=== PATIENT | male | born 1985 | race Caucasian/White ===

== ENCOUNTER 2018-09-12 17:11 | Inpatient (IN) | payer OTHER ==
[2018-09-12 17:46] VITALS: BMI 19.1
--- NOTE | 2018-09-12 20:40 | HP ---
CIWA Score - Admission Criteria [facility] Guidelines: Admission for Medically Managed Detox: Requires at least one of the followin. CIWA greater than 12 2. Seizures within the past 24 hours 3. Delirium tremens within the past 24 hours 4. Hallucinations within the past 24 hours 5. Acute intervention needed for co occurring medical disorder 6. Acute intervention needed for co occurring psychiatric disorder 7. Severe withdrawal that cannot be handled at a lower level of care (continued vomiting, continued diarrhea, abnormal vital signs) requiring intravenous medication and/or fluids 8. Admission ROS S - HPI Chief Complaint: SEEKING REHAB SERVICES FOR CRYSTAL METH AND MARIJUANA. Allergies/Adverse Reactions: Allergies Allergy/AdvReac Type Severity Reaction Status Date / Time No Known Allergies Allergy Verified 09/12/18 18:10 History of Present Illness: 33 Y.O. MALE WITH HX/O CRYSTAL METH AND CANNABIS DEPENDENCE HERE FOR REHAB SERVICES. CLIENT IS REFERRED BY [facility] AFTER SEEKING ER SERVICES FOR C/O PANIC AND SI AFTER GETTING HIGH. CLIENT REPORTS THIS IS HIS FIRST INPATIENT TXMENT. UTOX IS POSITIVE FOR BENZO , RECEIVED IN ER FOR THE ANXIETY. REPORTS LONGEST CLEAN TIME 6 MONTHS. DENIES NAY SIGNIFICANT CLEAN TIME IN THE PAST YEAR. REPORTS HX/O SI BUT PRESENTLY DENIES. DENIES AVH, SEIZURES, DRUG OVERDOSE. LIVES ALONE, RECENTLY UNEMPLOYED, ON PAROLE. PMHX- HIV -STRIBILD- NON COMPLIANT WITH MEDS STATES "I HAVE NOT TAKEN IN A LONG TIME" PSYCH- BORDERLINE PERSONALITY D/O, ANXIETY, DEPRESSION Exam Limitations: No Limitations - Ebola screening Have you traveled outside of the country in the last 21 days: No Have you had contact with anyone from an Ebola affected area: No Have you been sick,other than usual withdrawal symptoms: No Do you have a fever: No - Review of Systems Constitutional: No Symptoms Reported EENT: reports: Mouth Pain (C/O SORE IN MOUTH R/T CRYSTAL METH ABUSE) Respiratory: reports: No Symptoms reported Cardiac: reports: No Symptoms Reported GI: reports: Poor Fluid Intake : reports: No Symptoms Reported Musculoskeletal: reports: No Symptoms Reported Integumentary: reports: Erythema (SORE/ABCESS IN MOUTH) Neuro: reports: No Symptoms reported Endocrine: reports: No Symptoms Reported Hematology: reports: No Symptoms Reported Psychiatric: reports: Anxious, Depressed Other Systems: Reviewed and Negative Patient History - Patient Medical History Hx Anemia: No Hx Asthma: No Hx Chronic Obstructive Pulmonary Disease (COPD): No Hx Cancer: No Hx Cardiac Disorders: No Hx Congestive Heart Failure: No Hx Hypertension: No Hx Hypercholesterolemia: No HX Cerebrovascular Accident: No Hx Seizures: No Hx Dementia: No Hx Diabetes: No Hx Gastrointestinal Disorders: Yes (IBS) Hx Liver Disease: No Hx Genitourinary Disorders: No Hx Sexually Transmitted Disorders: No Hx Renal Disease (ESRD): No Hx Thyroid Disease: No Hx Human Immunodeficiency Virus (HIV): Yes (DX 02/06/2008) Hx Hepatitis C: No Hx Depression: Yes Hx Suicide Attempt: No Hx Bipolar Disorder: No Hx Schizophrenia: No - Patient Surgical History Past Surgical History: No - PPD History Previous Implant?: Yes Documented Results: Negative w/o proof Implanted On Prior [facility] Admission?: No PPD to be Administered?: Yes - Smoking Cessation Smoking history: Former smoker Have you smoked in the past 12 months: No Cigars Per Day: 0 Hx Chewing Tobacco Use: No Initiated information on smoking cessation: No - Substance & Tx. History Hx Alcohol Use: No Hx Substance Use: Yes Substance Use Type: Marijuana, Tranquilizers (CRYSTAL METH) Hx Substance Use Treatment: No - Substances Abused THC Route: Smoking Frequency: Daily Amount used: 50 BLUNTS Age of first use: 19 Date of Last Use: 09/10/18 CRYSTAL METH Route: Injection Frequency: 3-6 times per week Amount used: 120 DOLLARS Age of first use: 31 Date of Last Use: 09/10/18 Family Disease History - Family Disease History Family History: Denies Admission Physical Exam BHS - Vital Signs Vital Signs: Vital Signs - 24 hr 09/12/18 17:44 Temperature 96.7 F L Pulse Rate 85 Respiratory 18 Rate Blood Pressure 100/60 - Physical General Appearance: Yes: Appropriately Dressed, Anxious HEENTM: Yes: EOMI, Normocephalic, Normal Voice, PAMELA, Pharynx Normal, Orbits ( RIGHT DROOPY EYE), Other (SMALL LOCALIZED REDNESS WITH TENDERNESS ON PALPATION TO LUQ OF ORAL MUCOSA) Respiratory: Yes: Chest Non-Tender, Lungs Clear, Normal Breath Sounds, No Respiratory Distress, No Accessory Muscle Use Neck: Yes: No masses,lesions,Nodules, Supple, Trachea in good position Breast: Yes: Breast Exam Deferred Cardiology: Yes: Regular Rhythm, Regular Rate, S1, S2 Abdominal: Yes: Normal Bowel Sounds, Non Tender, Soft Genitourinary: Yes: Within Normal Limits Back: Yes: Normal Inspection Musculoskeletal: Yes: full range of Motion, Gait Steady Extremities: Yes: Normal Capillary Refill, Normal Range of Motion, Non-Tender Neurological: Yes: Fully Oriented, Alert, Motor Strength 5/5 Integumentary: Yes: Dry, Warm, Other (INJECTION HALE TO ARMS) Lymphatic: Yes: Within Normal Limits - Diagnostic (1) Methamphetamine dependence Current Visit: Yes Status: Acute (2) Cannabis dependence Current Visit: Yes Status: Acute (3) HIV (human immunodeficiency virus infection) Current Visit: Yes Status: Chronic (4) Non compliance w medication regimen Current Visit: Yes Status: Chronic (5) IV drug user Current Visit: Yes Status: Chronic (6) At risk for dehydration due to poor fluid intake Current Visit: Yes Status: Acute (7) Substance induced mood disorder Current Visit: Yes Status: Suspected (8) Homeless Current Visit: Yes Status: Suspected Cleared for Admission [facility] - Detox or Rehab Detox Regimen/Protocol: Not Applicable Claeared for Rehab Admission: Yes [facility] Breath Alcohol Content Breath Alcohol Content: 0 Urine Drug Screen - Results Drug Screen Negative: No Urine Drug Screen Results: THC-Marijuana, AMP-Amphetamines, MET-Methamphetamine , BAR-Barbiturates, BZO-Benzodiazepines Inpatient Rehab Admission - Initial Determination Are CD services needed?: Yes Free of communicable disease: No Not in need of hospitalization: Yes - Rehab Admission Criteria Previous failed treatment: No Poor recovery environment: Yes Comorbidities: Yes Lacks judgement: No Patient is meeting Inpatient Rehab admission criteria:: Yes
[2018-09-12] MEDS ORDERED: MENTHOL/PHENOL 1 EACH UD MM PRN (20:59)
[2018-09-12] MEDS ORDERED: LOPERAMIDE HCL 2 MG CAPSULE PO PRN (20:59)
[2018-09-12] MEDS ORDERED: P-EPHED 60MG/TRIPROLIDI 2.5MG TABLET PO PRN (20:59)
[2018-09-12] MEDS ORDERED: MAGNESIUM HYDROX 2400MG/30ML ORAL SUSPENSION 30 ML CUP PO PRN (20:59)
[2018-09-12] MEDS ORDERED: guaiFENesin/D-METHORPHAN HB 10 ML UNIT-DOSE CUPS PO PRN (20:59)
[2018-09-12] MEDS ORDERED: ACETAMINOPHEN 325 MG TABLET (FP) PO PRN (20:59)
[2018-09-12] MEDS ORDERED: MAGNESIUM CITRATE 300 ML BOTTLE PO PRN (20:59)
[2018-09-12] MEDS ORDERED: IBUPROFEN 400 MG TABLET (FP) PO PRN (20:59)
[2018-09-12] MEDS ORDERED: TUBERCULIN PPD 5 TU/0.1ML VIAL ID ONE (23:11)
[2018-09-12] MEDS: THIAMINE HCL 100 MG TABLET (FP) PO SCH (23:32)
[2018-09-12] MEDS: MELATONIN 5 MG TABLETS PO PRN (23:33)
[2018-09-12] MEDS: hydrOXYzine PAMOATE 50 MG CAPSULE (FP) PO PRN (23:33)
--- NOTE | 2018-09-13 06:54 | HP ---
Psychiatrist Admission - Data Date of interview: 09/13/18 Admission source: [facility] Identifying data: This is the first [facility] admission for this 33 years single old male, unemployed on public assistance, domiciled Medical History: Significant for HIV since 2007, history of irritable bowel syndrome Psychiatric History: Reports being diagnosed with Borderline Personality Disorder and depression at age 15 and Anxiety in 2014. Reports multiple previous hospitalizations at [facility] [address] and recently 2.[address] [facility]. Reports that he is not currently receiving psychiatric treament and he is not taking medication. Claims that in the past he has been on Celexa, Paxil, Zyprexa, Vistaril etc. Denies previous suicidal attempt. At present, reports feeing anxious and sleeping poorly Physical/Sexual Abuse/Trauma History: Denies history of emotional, physical or sexual abuse as well as DV relationship Additional Comment: Reports history of one previous arrest on charges of carrie in the 1st degree. He is currenly on parole till December 2019 Vital Signs: Vital Signs - 24 hr 09/12/18 09/13/18 09/13/18 17:44 00:30 03:30 Temperature 96.7 F L Pulse Rate 85 Respiratory 18 16 16 Rate Blood Pressure 100/60 Allergies/Adverse Reactions: Allergies Allergy/AdvReac Type Severity Reaction Status Date / Time No Known Allergies Allergy Verified 09/12/18 18:10 Date of last physical exam: 09/12/18 Concur with the findings of this exam: Yes - Substance Abuse/Tx History Hx Substance Use: Yes (Started crystal meth at 31, consumes $120 3-6 x weekly. Last used on ) Substance Use Type: Marijuana (Started smoking marijuana at age 19, consumes 50 blunts daily. Last smoked on 09/10/19) Hx Substance Use Treatment: No Mental Status Exam - Mental Status Exam Alert and Oriented to: Time, Place, Person Cognitive Function: Fair Patient Appearance: Well Groomed Mood: Anxious Affect: Appropriate Patient Behavior: Cooperative Speech Pattern: Clear Voice Loudness: Normal Thought Process: Intact, Goal Oriented Hallucinations: Denies Suicidal Ideation: Denies Homicidal Ideation: Denies Insight/Judgement: Fair Sleep: Poorly Appetite: Fair Muscle strength/Tone: Normal Gait/Station: Normal Psychiatric Findings - Problem List ([place] 1, 2,3) (1) Cannabis dependence Current Visit: Yes Status: Acute (2) Methamphetamine dependence Current Visit: Yes Status: Acute (3) Mood disorder Current Visit: Yes Status: Chronic (4) Substance-induced anxiety disorder Current Visit: Yes Status: Acute (5) Substance-induced sleep disorder Current Visit: Yes Status: Acute (6) HIV (human immunodeficiency virus infection) Current Visit: Yes Status: Chronic - Initial Treatment Plan Initial Treatment Plan: Monitor progress
[2018-09-13] MEDS: PRENATAL VITAMINS W/ FOLIC ACID TABLET (FP) PO SCH (10:11)
[2018-09-13] MEDS: LIDOCAINE VISCOUS 2% ORAL/TOP 20 ML UNIT-DOSE CUP MM PRN (12:53)
[2018-09-13] MEDS: hydrOXYzine PAMOATE 50 MG CAPSULE (FP) PO PRN (14:13)
--- NOTE | 2018-09-13 16:24 | EKG ---
Test Reason : Blood Pressure : / mmHG Vent. Rate : 078 BPM Atrial Rate : 078 BPM P-R Int : 164 ms QRS Dur : 086 ms QT Int : 366 ms P-R-T Axes : 043 085 075 degrees QTc Int : 417 ms NORMAL SINUS RHYTHM ST ELEVATION, CONSIDER EARLY REPOLARIZATION, PERICARDITIS, OR INJURY ABNORMAL ECG NO PREVIOUS ECGS AVAILABLE Confirmed by PARVEEN BELLA MD ([id number]) on 09/13/2018 4:24:13 PM Referred By: Confirmed By:PARVEEN BELLA MD
[2018-09-13 16:44] LABS: URINE APPEARANCE TURBID; URINE BILIRUBIN NEGATIVE (<2.0 mg/dL); URINE COLOR YELLOW; URINE GLUCOSE (UA) NEGATIVE (NEGATIVE); URINE KETONE NEGATIVE (NEGATIVE); URINE LEUK ESTERASE NEGATIVE (NEGATIVE); URINE NITRITE NEGATIVE (NEGATIVE); URINE PROTEIN 1+ (NEGATIVE); URINE UROBILINOGEN NEGATIVE mg/dL (0.2-1.0)
[2018-09-13 16:53] LABS: URINE MUCUS MANY
[2018-09-13] MEDS: THIAMINE HCL 100 MG TABLET (FP) PO SCH (21:59)
[2018-09-14] MEDS: PRENATAL VITAMINS W/ FOLIC ACID TABLET (FP) PO SCH (09:38)
[2018-09-14] MEDS: hydrOXYzine PAMOATE 50 MG CAPSULE (FP) PO PRN (09:38)
[2018-09-14] MEDS: LIDOCAINE VISCOUS 2% ORAL/TOP 20 ML UNIT-DOSE CUP MM PRN (09:39)
[2018-09-14 11:05] LABS: BASO % 1.3 % (0-2.0); EOS % 5.8 % (0-4.5); HEMATOCRIT 44.7 % (35.4-49); HEMOGLOBIN 14.7 GM/dL (11.7-16.9); MCH 31.4 pg (25.7-33.7); MEAN CELL VOLUME 95.2 fl (80-96); MEAN PLT VOLUME 7.6 fl (7.5-11.1); MONO % 11.3 % (3.8-10.2); NEUT % 46.6 % (42.8-82.8); PLATELET COUNT 317 K/MM3 (134-434); RDW 13.2 % (11.9-15.9); WHITE BLOOD COUNT 4.9 K/mm3 (4.0-10.0)
[2018-09-14 11:13] LABS: ALBUMIN 3.8 g/dl (3.4-5.0); ALK PHOS 65 U/L (45-117); ANION GAP 6 MMOL/L (8-16); BILIRUBIN,TOTAL 0.7 mg/dL (0.2-1); BLOOD UREA NITROGEN 11 mg/dL (7-18); CALCIUM 8.5 mg/dL (8.5-10.1); CHLORIDE 102 mmol/L (98-107); CO2 29 mmol/L (21-32); CREATININE 0.8 mg/dL (0.55-1.3); GLUCOSE,RANDOM 82 mg/dL (74-106); POTASSIUM 4.5 mmol/L (3.5-5.1); SGOT/AST 16 U/L (15-37); SGPT/ALT 31 U/L (13-61); SODIUM 136 mmol/L (136-145); TOT PROT 7.7 g/dl (6.4-8.2)
[2018-09-14] MEDS: MAG HYDROX/AL HYDROX/SIMETH 30 ML UNIT-DOSE CUP PO PRN (19:41)
[2018-09-14] MEDS: THIAMINE HCL 100 MG TABLET (FP) PO SCH (22:01)
[2018-09-15] MEDS: PRENATAL VITAMINS W/ FOLIC ACID TABLET (FP) PO SCH (09:59)
[2018-09-15] MEDS: hydrOXYzine PAMOATE 50 MG CAPSULE (FP) PO PRN ×2 (10:00→17:36)
[2018-09-15] MEDS: THIAMINE HCL 100 MG TABLET (FP) PO SCH (21:50)
[2018-09-16] MEDS: hydrOXYzine PAMOATE 50 MG CAPSULE (FP) PO PRN ×2 (08:50→21:07)
[2018-09-16] MEDS: PRENATAL VITAMINS W/ FOLIC ACID TABLET (FP) PO SCH (10:40)
[2018-09-16] MEDS: MELATONIN 5 MG TABLETS PO PRN (21:07)
[2018-09-16] MEDS: THIAMINE HCL 100 MG TABLET (FP) PO SCH (21:08)
[2018-09-17] MEDS: hydrOXYzine PAMOATE 50 MG CAPSULE (FP) PO PRN ×2 (09:56→13:52)
[2018-09-17] MEDS: PRENATAL VITAMINS W/ FOLIC ACID TABLET (FP) PO SCH (09:57)
[2018-09-17] MEDS: THIAMINE HCL 100 MG TABLET (FP) PO SCH (23:00)
[2018-09-18] MEDS: PRENATAL VITAMINS W/ FOLIC ACID TABLET (FP) PO SCH (10:45)
[2018-09-18] MEDS: hydrOXYzine PAMOATE 50 MG CAPSULE (FP) PO PRN ×2 (14:38→18:05)
[2018-09-18] MEDS: THIAMINE HCL 100 MG TABLET (FP) PO SCH (21:59)
[2018-09-19] MEDS: PRENATAL VITAMINS W/ FOLIC ACID TABLET (FP) PO SCH (10:44)
[2018-09-19] MEDS: MAG HYDROX/AL HYDROX/SIMETH 30 ML UNIT-DOSE CUP PO PRN (14:04)
[2018-09-19] MEDS: THIAMINE HCL 100 MG TABLET (FP) PO SCH (22:20)
[2018-09-20] MEDS: PRENATAL VITAMINS W/ FOLIC ACID TABLET (FP) PO SCH (10:54)
[2018-09-20] MEDS: hydrOXYzine PAMOATE 50 MG CAPSULE (FP) PO PRN (11:26)
[2018-09-20] MEDS: NICOTINE POLACRILEX 2 MG GUM BUC PRN (13:05)
[2018-09-20] MEDS: MAG HYDROX/AL HYDROX/SIMETH 30 ML UNIT-DOSE CUP PO PRN ×2 (13:06→20:21)
[2018-09-20] MEDS: MELATONIN 5 MG TABLETS PO PRN (21:07)
[2018-09-20] MEDS: THIAMINE HCL 100 MG TABLET (FP) PO SCH (21:08)
[2018-09-21 06:52] VITALS: TEMP 98.1
[2018-09-21] MEDS: hydrOXYzine PAMOATE 50 MG CAPSULE (FP) PO PRN ×2 (09:38→21:44)
[2018-09-21] MEDS: PRENATAL VITAMINS W/ FOLIC ACID TABLET (FP) PO SCH (09:39)
[2018-09-21] MEDS: NICOTINE POLACRILEX 2 MG GUM BUC PRN ×2 (09:39→21:45)
[2018-09-21] MEDS: MELATONIN 5 MG TABLETS PO PRN (21:44)
[2018-09-21] MEDS: MAG HYDROX/AL HYDROX/SIMETH 30 ML UNIT-DOSE CUP PO PRN (21:44)
[2018-09-21] MEDS: THIAMINE HCL 100 MG TABLET (FP) PO SCH (21:45)
--- NOTE | 2018-09-22 07:40 | PN ---
S Progress Note Note: seen for c/o left chest wall pain. client states he is not sure if it is pain but that it feels uncomfortable more in his breast tissue. "it might be my anxiety and my mind" initially denying reports of radiation. while interviewing client he started to c/o worsening pain and now radiating through his back. denying sob, fever, dizziness, +chills, +anxious, seen awake, alert, anxious,restless a/o x3 cv rrr 82 lungs ctab o2 sat 99 ra Vital Signs Temperature 98.1 F 09/21/18 06:51 Pulse Rate 91 H 09/21/18 06:51 Respiratory Rate 16 09/22/18 03:30 Blood Pressure 103/74 09/21/18 06:51 O2 Sat by Pulse Oximetry (%) ekg nsr/sinus arrhythmia st elevation, probably due to early repolarization borderline ecg- when compared to previous ekg on this admission ?pericarditis/ injury not noted on this ekg. 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
[2018-09-22] MEDS ORDERED: IBUPROFEN 400 MG TABLET (FP) PO ONE (07:54)
--- NOTE | 2018-09-22 09:27 | PN ---
[facility] Progress Note Note: Psychiatric nurse practitioner note: Patient seen briefly this morning after SET MAKING MACHINE OPERATOR Ninfa ordered a psychiatric consultation due to patient's irritability last night. Patient received vistaril 50mg at 21:44 with good effect. As per nursing staff patient's mood is labile. Assistant Manager/Embalmer approached bedside and patient presented as calm and cooperative. Stated he was feeling fine this morning and needed additional sleep before his visitors arrive on the unit. Nursing staff informed of patient' s decision to defer psychiatric consultation at this time. Will continue to monitor.
[2018-09-22] MEDS: PRENATAL VITAMINS W/ FOLIC ACID TABLET (FP) PO SCH (10:55)
[2018-09-22] MEDS: hydrOXYzine PAMOATE 50 MG CAPSULE (FP) PO PRN (14:25)
[2018-09-22] MEDS: NICOTINE POLACRILEX 2 MG GUM BUC PRN ×2 (14:26→16:56)
[2018-09-22] MEDS: THIAMINE HCL 100 MG TABLET (FP) PO SCH (22:16)
--- NOTE | 2018-09-23 08:32 | EKG ---
Test Reason : Blood Pressure : / mmHG Vent. Rate : 061 BPM Atrial Rate : 061 BPM P-R Int : 186 ms QRS Dur : 090 ms QT Int : 396 ms P-R-T Axes : 040 077 063 degrees QTc Int : 398 ms NORMAL SINUS RHYTHM WITH SINUS ARRHYTHMIA ST ELEVATION, CONSIDER EARLY REPOLARIZATION BORDERLINE ECG WHEN COMPARED WITH ECG OF 12-SEP-2018 22:13, NO SIGNIFICANT CHANGE WAS FOUND Confirmed by ZENY VANG, PAMELLA ([id number]) on 09/23/2018 8:31:57 AM Referred By: Confirmed By:PAMELLA MOURA MD
[2018-09-23 09:45] VITALS: BP 119/78; PULSE 78
[2018-09-23] MEDS: PRENATAL VITAMINS W/ FOLIC ACID TABLET (FP) PO SCH (10:05)
[2018-09-23] MEDS: hydrOXYzine PAMOATE 50 MG CAPSULE (FP) PO PRN ×2 (15:41→21:36)
--- NOTE | 2018-09-23 16:11 | PN ---
[facility] Progress Note Note: Patient reports sleeping poorly despite taking Melatonin 5 mg po HS prn. Requests to be ordered Belsomra. Belsomra 10 mg po HS prn for insomnia ordered
[2018-09-23] MEDS: THIAMINE HCL 100 MG TABLET (FP) PO SCH (21:34)
[2018-09-23] MEDS ORDERED: SUVOREXANT 10 MG TABLET PO PRN (22:00)
[2018-09-24] MEDS: hydrOXYzine PAMOATE 50 MG CAPSULE (FP) PO PRN ×3 (10:40→22:35)
[2018-09-24] MEDS: PRENATAL VITAMINS W/ FOLIC ACID TABLET (FP) PO SCH (10:40)
--- NOTE | 2018-09-24 10:56 | PN ---
S Progress Note Note: Patient complains of sleeping poorly last night despite taking Belsomra 10 mg. Requests that medication dosage be increased. Belsomra 15 mg po HS prn insomnia will be ordered
[2018-09-24] MEDS: NICOTINE POLACRILEX 2 MG GUM BUC PRN ×2 (18:35→22:36)
[2018-09-24] MEDS ORDERED: SUVOREXANT 15 MG TABLET PO PRN (22:00)
[2018-09-24] MEDS: THIAMINE HCL 100 MG TABLET (FP) PO SCH (22:03)
[2018-09-25] MEDS: hydrOXYzine PAMOATE 50 MG CAPSULE (FP) PO PRN ×2 (09:50→21:32)
--- NOTE | 2018-09-25 15:05 | PN ---
Psychiatric Progress Note Vital Signs: Vital Signs Period Temp Pulse Resp BP Sys/Do Pulse Ox Last 24 Hr 18 Date of Session: 09/25/18 Chief Complaint:: Discharge Note HPI: Patient addressing Cannabis and Methamphetamine Dependence comorbid with Mood Disorder, Substance-Induced Anxiety Disorder and Substance-Induced Sleep Disorder ROS: HIV Current Medications: Active Medications Generic Name Dose Route Start Last Admin Trade Name Freq PRN Reason Stop Dose Admin Acetaminophen 650 mg 09/12/18 20:59 09/22/18 01:06 Tylenol - PO 650 mg Q4H PRN Administration FEVER Al Hydroxide/Mg Hydroxide 30 ml 09/12/18 20:59 09/21/18 21:44 Mylanta Oral Suspension - PO 30 ml Q6H PRN Administration DYSPEPSIA Eucalyptus/Menthol/Phenol/Sorbitol 1 each 09/12/18 20:59 Cepastat Lozenge - MM Q4H PRN SORE THROAT Guaifenesin 10 ml 09/12/18 20:59 Robitussin Dm - PO Q6H PRN COUGH Hydroxyzine Pamoate 50 mg 09/12/18 20:59 09/25/18 09:50 Vistaril - PO 50 mg Q4H PRN Administration AGITATION Ibuprofen 400 mg 09/12/18 20:59 Motrin - PO Q6H PRN Pain level 4-6 Lidocaine HCl 15 ml 09/12/18 20:55 09/14/18 09:39 Xylocaine 2% Viscous Oral - MM 15 ml Q6H PRN Administration MODERATE PAIN Loperamide HCl 4 mg 09/12/18 20:59 Imodium - PO Q6H PRN DIARRHEA Magnesium Citrate 300 ml 09/12/18 20:59 Citroma - PO Q48H PRN CONSTIPATION Magnesium Hydroxide 30 ml 09/12/18 20:59 Milk Of Magnesia - PO DAILY PRN CONSTIPATION Melatonin 5 mg 09/12/18 22:00 09/21/18 21:44 Melatonin PO 5 mg HS PRN Administration INSOMNIA Nicotine Polacrilex 2 mg 09/20/18 11:26 09/24/18 22:36 Nicorette Gum - BUC 2 mg Q2H PRN Administration NICOTINE REPLACEMENT RX Pseudoephedrine/Triprolidine 1 combo 09/12/18 20:59 Actifed - PO TID PRN NASAL CONGESTION Suvorexant 10 mg 09/23/18 22:00 09/23/18 21:36 Belsomra PO 10 mg HS PRN Administration INSOMNIA Suvorexant 15 mg 09/24/18 22:00 09/24/18 22:36 Belsomra PO 15 mg HS PRN Administration INSOMNIA Thiamine HCl 100 mg 09/12/18 22:00 09/24/18 22:03 Vitamin B1 - PO Not Given HS JOLANTA Current Side Effect: No Lab tests ordered: Yes Lab tests reviewed: Yes Provider note:: Patient will complete this program on 09/26/18. He has met his treatment goals and will continue to address his issues at [facility] [place] [address] [place] [phone]. Told freelance writer that from his participation in this program, he has learned. He is stable for discharge on 09/26/18 Total face to face time:: 35 Mental Status Exam - Mental Status Exam Alert and Oriented to: Time, Place, Person Cognitive Function: Fair Patient Appearance: Well Groomed Mood: Hopeful, Euthymic Affect: Appropriate Patient Behavior: Cooperative Speech Pattern: Clear Voice Loudness: Normal Thought Process: Intact, Goal Oriented Thought Disorder: Not Present Hallucinations: Denies Suicidal Ideation: Denies Homicidal Ideation: Denies Insight/Judgement: Fair Sleep: Fair Appetite: Good Muscle strength/Tone: Normal Gait/Station: Normal Psychiatric Treatment Plan - Problem List (1) Cannabis dependence Current Visit: Yes (2) Methamphetamine dependence Current Visit: Yes (3) Mood disorder Current Visit: Yes (4) Substance-induced anxiety disorder Current Visit: Yes (5) Substance-induced sleep disorder Current Visit: Yes (6) HIV (human immunodeficiency virus infection) Current Visit: Yes Initial treatment plan: Patient is discharged tomorrow and [place] [facility] [place]
[2018-09-25] MEDS: THIAMINE HCL 100 MG TABLET (FP) PO SCH (21:33)
[2018-09-26] MEDS: hydrOXYzine PAMOATE 50 MG CAPSULE (FP) PO PRN (08:58)
--- NOTE | 2018-09-26 10:09 | PN ---
[facility] Progress Note Note: PATIENT COMPLETED REHAB TODAY WITHOUT ADVERSE EVENT. PATIENT MEDICALLY STABLE AND DENIES SI/HI. PATIENT TO CONTINUE REHAB TREATMENT AT [facility] IN [place], [place]. PATIENT STATES HE HAS MEDICATION AT HOME AND DOES NOT NEED PRESCRIPTIONS SENT. PATIENT ENCOURAGED TO CONTINUE WITH REHAB SERVICES TO PREVENT RELAPSE AND TO FOLLOW UP WITH PCP WITHIN ONE WEEK OF D/C. PATIENT GIVEN D/C PAPERS BY STAFF. Vital Signs Temperature 98.1 F 09/21/18 06:51 Pulse Rate 78 09/23/18 09:30 Respiratory Rate 18 09/26/18 03:30 Blood Pressure 119/78 09/23/18 09:30 O2 Sat by Pulse Oximetry (%) Laboratory Tests 09/13/18 09/14/18 09/14/18 11:00 07:00 07:00 WBC 4.9 RBC 4.70 Hgb 14.7 Hct 44.7 MCV 95.2 MCH 31.4 MCHC 33.0 RDW 13.2 Plt Count 317 MPV 7.6 Absolute Neuts (auto) 2.3 Neutrophils % 46.6 Lymphocytes % 35.0 Monocytes % 11.3 H Eosinophils % 5.8 H Basophils % 1.3 Nucleated RBC % 0 Sodium 136 Potassium 4.5 Chloride 102 Carbon Dioxide 29 Anion Gap 6 L BUN 11 Creatinine 0.8 Creat Clearance w eGFR > 60 Random Glucose 82 Calcium 8.5 Total Bilirubin 0.7 AST 16 ALT 31 Alkaline Phosphatase 65 Total Protein 7.7 Albumin 3.8 Urine Color Yellow Urine Appearance Turbid Urine pH 5.0 Ur Specific [place] 1.035 Urine Protein 1+ H Urine Glucose (UA) Negative Urine Ketones Negative Urine Blood Negative Urine Nitrite Negative Urine Bilirubin Negative Urine Urobilinogen Negative Ur Leukocyte Esterase Negative Urine WBC (Auto) None Urine RBC (Auto) None Urine Mucus Many RPR Titer 09/14/18 07:00 WBC RBC Hgb Hct MCV MCH MCHC RDW Plt Count MPV Absolute Neuts (auto) Neutrophils % Lymphocytes % Monocytes % Eosinophils % Basophils % Nucleated RBC % Sodium Potassium Chloride Carbon Dioxide Anion Gap BUN Creatinine Creat Clearance w eGFR Random Glucose Calcium Total Bilirubin AST ALT Alkaline Phosphatase Total Protein Albumin Urine Color Urine Appearance Urine pH Ur Specific [place] Urine Protein Urine Glucose (UA) Urine Ketones Urine Blood Urine Nitrite Urine Bilirubin Urine Urobilinogen Ur Leukocyte Esterase Urine WBC (Auto) Urine RBC (Auto) Urine Mucus RPR Titer Nonreactive
== END 2018-09-26 09:40 | disposition home or self-care (01) | DRG 772 ==
LOC: YASAS 17:11 → Y3W 19:18
PROVIDERS: ADMIT Psychiatry & Neurology Psychiatry; ATTEND Psychiatry & Neurology Psychiatry
PROC: HZ42ZZZ Group Counseling for Substance Abuse Treatment, Cognitive-Behavioral (ICD-10-PCS; principal; 2018-09-12)
DX: F15.20 Other stimulant dependence, uncomplicated (principal); F12.20 Cannabis dependence, uncomplicated; F39 Unspecified mood [affective] disorder; F19.280 Other psychoactive substance dependence with psychoactive substance-induced anxiety disorder; F19.282 Other psychoactive substance dependence with psychoactive substance-induced sleep disorder; B20 Human immunodeficiency virus [HIV] disease; I49.9 Cardiac arrhythmia, unspecified; R63.8 Other symptoms and signs concerning food and fluid intake; K58.9 Irritable bowel syndrome, unspecified; Z87.891 Personal history of nicotine dependence; Z91.14 Patient's other noncompliance with medication regimen; Z59.0 Homelessness
CPT/HCPCS: 36415; 80053; 81003; 81015; 85025; 86593; 93005; 93010